=== PATIENT | male | born 1965 | race African-American/Black ===

== ENCOUNTER 2018-02-13 23:48 | Emergency (ER) | payer SELFPAY ==
[~2018-02-13] VITALS: Ht 180.3 cm; Wt 72.6 kg
[2018-02-13 23:54] VITALS: BP 119/74
[2018-02-14] MEDS ORDERED: ALBUTEROL SULF 2.5 MG/0.5ML(0.5%) NEB SOLN NEB ONE (01:30)
[2018-02-14] MEDS ORDERED: IPRATROPIUM BROM 0.5 MG/2.5ML INH SOL NEB ONE (01:30)
== END 2018-02-14 03:08 | disposition left against medical advice (07) ==
LOC: EDBD 23:48 → ER 23:54
DX: J45.901 Unspecified asthma with (acute) exacerbation (principal); Z53.21 Procedure and treatment not carried out due to patient leaving prior to being seen by health care provider